=== PATIENT | male | born 1980 ===

== ENCOUNTER → 2025-05-22 13:15 | Outpatient (CLI) | payer OTHER ==
[2025-05-22 13:53] LABS: BASO % 0.3 % (0.1-1.2); EOS # 0.01 (0.04-0.54); EOS % 0.1 % (0.7-7.0); LYMPH # 1.87 (1.18-3.74); LYMPH % 26.8 % (19.3-53.1); MEAN PLATELET VOLUME 9.50 fl (9.4-12.4); MONO # 0.36 (0.24-0.82); MONO % 5.2 % (4.7-12.5); NEUT # 4.71 (1.56-6.13); NEUT % 67.5 % (34.0-71.1); RED CELL DISTRIBUTION WIDTH 13.9 % (11.6-14.4)
[2025-05-22 13:54] LABS: URINE APPEARANCE Clear; URINE BILIRRUBIN Negative (NEGATIVE); URINE BLOOD Negative; URINE COLOR Yellow; URINE GLUCOSE Negative (NEGATIVE); URINE KETONE Trace (NEGATIVE); URINE LEUKOCYTE Small; URINE NITRATE Negative; URINE PROTEIN Negative (NEGATIVE); URINE UROBILINOGEN 1.0 E.U./dl
[2025-05-22 13:58] LABS: URINE BACTERIA 19.1 uL (0.0-1933); URINE EPITHELIAL CELLS 3.0 uL (0.0-38.8); URINE RBC 9.2 uL (0.0-20.8); URINE WBC 20.9 uL (0.0-23.2)
[2025-05-22 14:00] LABS: URINE CAST 0.00 uL (0.0-1.40)
[2025-05-22 14:49] LABS: BUN CREA RATIO 22.0 (7.0-25.0); CREATININE SERUM 0.89 mg/dL (0.70-1.30); GFR 93.74; GLUCOSE FASTING 106.0 mg/dL (65-100); OSMOLALITY SERUM 284.0 MOSM/KG (275-295)
== END | disposition home or self-care (01) ==
LOC: LAB 13:15
DX: E78.2 Mixed hyperlipidemia (principal); R73.01 Impaired fasting glucose; Z11.3 Encounter for screening for infections with a predominantly sexual mode of transmission; Z11.4 Encounter for screening for human immunodeficiency virus [HIV]